=== PATIENT | female | born 1930 | race Caucasian/White ===

== ENCOUNTER 2018-01-07 02:12 | Inpatient (IN) | payer MEDICARE, OTHER ==
[~2018-01-07] VITALS: Ht 165.1 cm; Wt 68.1 kg
[~2018-01-07 02:12] MED LIST: ASPI-1009 PO; CLOP75TA35 PO; DEXL30CA3 PO; GLYB2.5T59 PO; ZOC40T PO
[2018-01-07] MEDS ORDERED: ipratropium 0.5 MG/2.5ML nebule IH ONE (02:15)
[2018-01-07] MEDS ORDERED: magnesium 4gm in 100ml NS 100 ML IV ONE (02:15)
[2018-01-07] MEDS ORDERED: albuterol 2.5 MG/3 ML nebule CONTNEB PRN (02:15)
[2018-01-07] MEDS ORDERED: methylPREDNISolone sod succ 125mg/2ml vial IV ONE (02:15)
[2018-01-07 02:40] LABS: BASOPHILS % (AUTO) 0.3 % (0-1); EOSINOPHILS # (AUTO) 0.5 X10'3 (0-0.9); EOSINOPHILS % (AUTO) 4.6 % (0-6); HEMATOCRIT 37.2 % (35.0-45.0); HEMOGLOBIN 12.4 g/dl (12.0-16.0); LYMPHOCYTES # (AUTO) 5.7 X10'3 (1.1-4.8); LYMPHOCYTES % (AUTO) 47.9 % (21-51); MEAN CORPUSCULAR HEMOGLOBIN 31.3 PG (27.0-31.0); MEAN CORPUSCULAR HGB CONC 33.4 % (33.0-36.5); MEAN CORPUSCULAR VOLUME 93.7 FL (78-98); MONOCYTES % (AUTO) 8.3 % (2-12); NEUTROPHILS # (AUTO) 4.6 X10'3 (1.8-7.7); NEUTROPHILS % (AUTO) 38.9 % (42-75); RED BLOOD COUNT 3.97 X10'6 (4.20-5.60); RED CELL DISTRIBUTION WIDTH 16.1 % (11.5-14.5); WHITE BLOOD COUNT 11.8 X10'3 (4.5-11.0)
[2018-01-07 02:50] LABS: INR 0.9 INR; PARTIAL THROMBOPLASTIN TIME 22 SECONDS (22-32); PROTHROMBIN TIME 9.8 SECONDS (9.0-12.0)
[2018-01-07 02:55] LABS: ALANINE AMINOTRANSFERASE 21 U/L (12-78); ALBUMIN 3.6 G/DL (3.4-5.0); ALBUMIN/GLOBULIN RATIO 0.8 (1.1-1.5); ALKALINE PHOSPHATASE 82 IU/L (46-116); ANION GAP 14 (8-16); ASPARTATE AMINO TRANSFERASE 23 U/L (10-37); BILIRUBIN,TOTAL 0.3 MG/DL (0.1-1.0); BLOOD UREA NITROGEN 28 MG/DL (7-18); BUN/CREATININE RATIO 18.4 (6.6-38.0); CALCIUM 10.5 MG/DL (8.5-10.1); CHLORIDE 106 MMOL/L (99-107); CREATININE 1.52 MG/DL (0.40-0.90); GLUCOSE 241 MG/DL (70-104); POTASSIUM 3.8 MMOL/L (3.5-5.1); SODIUM 145 MMOL/L (135-145); TOTAL PROTEIN 7.9 G/DL (6.4-8.2); eGFR 33 ML/MIN
[2018-01-07 03:02] LABS: MAGNESIUM 2.2 MG/DL (1.5-2.4)
[2018-01-07 03:04] LABS: PLATELET COUNT 194 X10'3 (140-440)
[2018-01-07] MEDS ORDERED: furosemide 10 MG/1 ML 10ml inj IV ONE (03:15)
[2018-01-07] MEDS: normal saline 1000ml 1,000 ML IV SCH (03:28)
[2018-01-07] MEDS ORDERED: glucagon, human recombinant 1mg kit SUBCUT PRN (03:30)
[2018-01-07] MEDS ORDERED: morphine 4 MG/ML inj SYRINge IV PRN ×2 (03:30)
[2018-01-07] MEDS ORDERED: bisacodyl 10mg suppository rectal RC PRN (03:30)
[2018-01-07] MEDS ORDERED: acetaminophen 650mg rectal suppository RC PRN (03:30)
[2018-01-07] MEDS ORDERED: dextrose ORAL solution 15 GM/59 ML bottle PO PRN ×2 (03:30)
[2018-01-07] MEDS ORDERED: mag hydrox/Alum hydrox/simeth 30ml oral suspension PO PRN (03:30)
[2018-01-07] MEDS ORDERED: dextrose 50%-water 50ml dispensing syringe IV PRN ×2 (03:30)
[2018-01-07] MEDS ORDERED: acetaminophen 325mg tablet PO PRN (03:30)
[2018-01-07] MEDS ORDERED: HYDROmorphone 1 mg/ml syringe IV PRN ×2 (03:30)
[2018-01-07] MEDS ORDERED: HYDROcodone/acetaminophen 10/325mg tab PO PRN (03:30)
[2018-01-07] MEDS ORDERED: magnesium hydroxide 30ml (MOM) UD suspension PO PRN (03:30)
[2018-01-07] MEDS ORDERED: MESSAGE TO PHARMACY PO ONE (03:30)
[2018-01-07] MEDS ORDERED: ondansetron/PF 4mg/2ml inj IV PRN (03:30)
[2018-01-07] MEDS ORDERED: metoclopramide 5 mg/ml inj IV PRN (03:30)
[2018-01-07 03:52] LABS: HEMOGLOBIN A1C 6.7 % (4.5-6.2)
[2018-01-07 04:03] LABS: D-DIMER 6.53 MG/L FEU (0-0.50)
[2018-01-07] MEDS ORDERED: ipratropium/albuterol 3ml nebule NEB PRN ×2 (04:25→08:55)
[2018-01-07 04:30] VITALS: BP 146/65
[2018-01-07] MEDS: azithromycin/NS 500mg/250ml 250 ML IV SCH (04:40)
[2018-01-07 04:51] LABS: ABG BASE EXCESS -0.6 mmol/L (-2.0-3.0); ABG OXYGEN SATURATION 93.3 % (95-98); ABG PCO2 (T) 38.5 mmHg (32.0-45.0); ABG PO2 (T) 73.2 mmHg (83-108); FCOHb 0.3 % (0.5-1.5); FLOW 3 L/min; FMetHb 0.2 % (0.3-1.12); FO2Hb 92.8 % (94-100); PATIENT TEMPERATURE 36.6; RESPIRATORY RATE (OBSERVED) 18 b/min; TOTAL HEMOGLOBIN 13.1 G/dl (12.0-16.0)
[2018-01-07 06:00] VITALS: BP 132/73
[2018-01-07] MEDS: docusate sod 100mg capsule PO SCH ×2 (07:26→21:09)
[2018-01-07] MEDS: clopidogrel 75mg tablet PO SCH (07:27)
[2018-01-07] MEDS ORDERED: enoxaparin 60mg/0.6ml syringe SUBCUT SCH (08:00)
[2018-01-07] MEDS ORDERED: methylPREDNISolone sod succ 125mg/2ml vial IV SCH (08:00)
[2018-01-07] MEDS ORDERED: heparin 10,000 units/1 ML INJ IV ONE (09:45)
[2018-01-07] MEDS ORDERED: heparin 10,000 units/1 ML INJ IV PRN (09:45)
[2018-01-07 10:17] LABS: BASOPHILS % (AUTO) 0.1 % (0-1); EOSINOPHILS % (AUTO) 0 % (0-6); HEMATOCRIT 36.3 % (35.0-45.0); HEMOGLOBIN 12.2 g/dl (12.0-16.0); LYMPHOCYTES # (AUTO) 1.1 X10'3 (1.1-4.8); LYMPHOCYTES % (AUTO) 9.5 % (21-51); MEAN CORPUSCULAR HGB CONC 33.6 % (33.0-36.5); MEAN CORPUSCULAR VOLUME 92.4 FL (78-98); MEAN PLATELET VOLUME 11.4 FL (7.4-10.4); MONOCYTES # (AUTO) 0.1 X10'3 (0-0.9); MONOCYTES % (AUTO) 0.5 % (2-12); NEUTROPHILS # (AUTO) 10.8 X10'3 (1.8-7.7); NEUTROPHILS % (AUTO) 89.9 % (42-75); PLATELET COUNT 164 X10'3 (140-440); RED BLOOD COUNT 3.93 X10'6 (4.20-5.60); RED CELL DISTRIBUTION WIDTH 16.2 % (11.5-14.5)
[2018-01-07] MEDS: CefTRIAXone/D5W-Rocephin 1gm 50 ML IV SCH (10:18)
[2018-01-07] MEDS: aspirin 81mg tab.chew PO SCH (10:18)
[2018-01-07] MEDS: furosemide 20 MG/2 ML vial IV SCH ×2 (10:18→21:09)
[2018-01-07 10:48] LABS: LARGE PLATELETS FEW; PLATELET ESTIMATE NORMAL
[2018-01-07 11:00] VITALS: BP 132/73
[2018-01-07] MEDS: HYDROcodone/acetaminophen 5mg/325mg tablet PO PRN (12:33)
[2018-01-07] MEDS: insulin Lispro (HumaLOG) vial - multi-dose SQ SCH ×2 (14:32→18:48)
[2018-01-07] MEDS: carVEDilol 3.125mg tablet PO SCH ×2 (14:35→21:09)
[2018-01-07 15:00] VITALS: BP 126/64
[2018-01-07 15:02] LABS: CHOL/HDL RATIO 2.5 (0.00-4.99); CHOLESTEROL 171 MG/DL (0-200); HDL CHOLESTEROL 69 MG/DL (35-60); LDL CHOLESTEROL 91 MG/DL (50-100); TRIGLYCERIDES 47 MG/DL (20-135)
[2018-01-07] MEDS: methylPREDNISolone sod succ 125mg/2ml vial IV SCH ×2 (16:26→23:51)
[2018-01-07 18:00] VITALS: BP 127/97
[2018-01-07] MEDS ORDERED: temazepam 15mg capsule PO PRN (21:00)
[2018-01-07] MEDS: atorvastatin 20mg tablet PO SCH (21:09)
[2018-01-07] MEDS: lactobacillus rhamnosus 10,000 MMU CELLS/CAPSULE PO SCH (21:09)
[2018-01-07] MEDS ORDERED: ROSU40TA PO (21:11)
[2018-01-07] MEDS: insulin glargine (Lantus) pen - multi-dose SQ SCH (21:22)
[2018-01-07 22:00] VITALS: BP 115/64
[2018-01-08] MEDS: HYDROcodone/acetaminophen 5mg/325mg tablet PO PRN (01:30)
[2018-01-08 01:40] LABS: ALANINE AMINOTRANSFERASE 20 U/L (12-78); ALBUMIN 3.3 G/DL (3.4-5.0); ALBUMIN/GLOBULIN RATIO 0.9 (1.1-1.5); ALKALINE PHOSPHATASE 52 IU/L (46-116); ANION GAP 10 (8-16); ASPARTATE AMINO TRANSFERASE 21 U/L (10-37); BILIRUBIN,TOTAL 0.3 MG/DL (0.1-1.0); BLOOD UREA NITROGEN 38 MG/DL (7-18); BUN/CREATININE RATIO 31.1 (6.6-38.0); CALCIUM 9.2 MG/DL (8.5-10.1); CHLORIDE 102 MMOL/L (99-107); CREATININE 1.22 MG/DL (0.40-0.90); GLUCOSE 177 MG/DL (70-104); POTASSIUM 3.8 MMOL/L (3.5-5.1); SODIUM 139 MMOL/L (135-145); TOTAL PROTEIN 7.1 G/DL (6.4-8.2); eGFR 42 ML/MIN
[2018-01-08 01:48] LABS: BASOPHILS % (AUTO) 0 % (0-1); EOSINOPHILS % (AUTO) 0 % (0-6); HEMATOCRIT 34.1 % (35.0-45.0); HEMOGLOBIN 11.2 g/dl (12.0-16.0); LYMPHOCYTES # (AUTO) 1.7 X10'3 (1.1-4.8); LYMPHOCYTES % (AUTO) 9.5 % (21-51); MEAN CORPUSCULAR HEMOGLOBIN 30.6 PG (27.0-31.0); MEAN CORPUSCULAR HGB CONC 32.9 % (33.0-36.5); MONOCYTES # (AUTO) 0.3 X10'3 (0-0.9); MONOCYTES % (AUTO) 1.5 % (2-12); NEUTROPHILS # (AUTO) 15.6 X10'3 (1.8-7.7); PLATELET COUNT 166 X10'3 (140-440); RED BLOOD COUNT 3.67 X10'6 (4.20-5.60); RED CELL DISTRIBUTION WIDTH 16.1 % (11.5-14.5); WHITE BLOOD COUNT 17.6 X10'3 (4.5-11.0)
[2018-01-08 02:00] VITALS: BP 96/56
[2018-01-08 02:10] LABS: LARGE PLATELETS FEW; PLATELET ESTIMATE NORMAL
[2018-01-08 06:00] VITALS: BP 104/67
[2018-01-08] MEDS: docusate sod 100mg capsule PO SCH ×2 (07:52→19:39)
[2018-01-08] MEDS: clopidogrel 75mg tablet PO SCH (07:52)
[2018-01-08] MEDS: aspirin 81mg tab.chew PO SCH (07:52)
[2018-01-08] MEDS: methylPREDNISolone sod succ 125mg/2ml vial IV SCH (07:57)
[2018-01-08] MEDS: CefTRIAXone/D5W-Rocephin 1gm 50 ML IV SCH (07:57)
[2018-01-08] MEDS: azithromycin/NS 500mg/250ml 250 ML IV SCH (07:59)
[2018-01-08] MEDS: aspirin 81mg tablet.DR PO SCH (08:00)
[2018-01-08] MEDS: lactobacillus rhamnosus 10,000 MMU CELLS/CAPSULE PO SCH ×2 (08:13→19:39)
[2018-01-08] MEDS: furosemide 20 MG/2 ML vial IV SCH (08:13)
[2018-01-08] MEDS: carVEDilol 3.125mg tablet PO SCH ×2 (08:24→19:40)
[2018-01-08] MEDS: insulin Lispro (HumaLOG) vial - multi-dose SQ SCH ×3 (08:47→18:45)
[2018-01-08 11:00] VITALS: BP 115/77
[2018-01-08 15:00] VITALS: BP 114/59
[2018-01-08 18:00] VITALS: BP 130/70
[2018-01-08] MEDS ORDERED: normal saline 1000ml 1,000 ML IV SCH (20:00)
[2018-01-08] MEDS ORDERED: atorvastatin 10mg tablet PO SCH (21:00)
[2018-01-08] MEDS: atorvastatin 20mg tablet PO SCH (21:35)
[2018-01-08] MEDS: insulin glargine (Lantus) pen - multi-dose SQ SCH (21:42)
[2018-01-08 22:00] VITALS: BP 104/59
[2018-01-09 02:00] VITALS: BP 101/53
[2018-01-09] MEDS: normal saline 1000ml 1,000 ML IV SCH (03:28)
[2018-01-09 06:00] VITALS: BP 117/73
[2018-01-09 06:35] LABS: BASOPHILS % (AUTO) 0 % (0-1); EOSINOPHILS % (AUTO) 0 % (0-6); HEMOGLOBIN 10.6 g/dl (12.0-16.0); LYMPHOCYTES # (AUTO) 1.2 X10'3 (1.1-4.8); LYMPHOCYTES % (AUTO) 7.7 % (21-51); MEAN CORPUSCULAR HEMOGLOBIN 30.7 PG (27.0-31.0); MEAN CORPUSCULAR HGB CONC 33.1 % (33.0-36.5); MEAN CORPUSCULAR VOLUME 92.8 FL (78-98); MEAN PLATELET VOLUME 10.6 FL (7.4-10.4); MONOCYTES % (AUTO) 6.5 % (2-12); NEUTROPHILS # (AUTO) 13.9 X10'3 (1.8-7.7); NEUTROPHILS % (AUTO) 85.8 % (42-75); PLATELET COUNT 158 X10'3 (140-440); RED BLOOD COUNT 3.45 X10'6 (4.20-5.60); RED CELL DISTRIBUTION WIDTH 16.3 % (11.5-14.5); WHITE BLOOD COUNT 16.2 X10'3 (4.5-11.0)
[2018-01-09 07:04] LABS: ALANINE AMINOTRANSFERASE 16 U/L (12-78); ALBUMIN/GLOBULIN RATIO 0.9 (1.1-1.5); ALKALINE PHOSPHATASE 44 IU/L (46-116); ANION GAP 7 (8-16); ASPARTATE AMINO TRANSFERASE 20 U/L (10-37); BILIRUBIN,TOTAL 0.3 MG/DL (0.1-1.0); BLOOD UREA NITROGEN 48 MG/DL (7-18); BUN/CREATININE RATIO 38.7 (6.6-38.0); CALCIUM 8.5 MG/DL (8.5-10.1); CHLORIDE 107 MMOL/L (99-107); CREATININE 1.24 MG/DL (0.40-0.90); GLUCOSE 95 MG/DL (70-104); POTASSIUM 3.7 MMOL/L (3.5-5.1); SODIUM 143 MMOL/L (135-145); TOTAL CARBON DIOXIDE 28.9 MMOL/L (24-32); TOTAL PROTEIN 6.5 G/DL (6.4-8.2); eGFR 41 ML/MIN
[2018-01-09 07:15] LABS: LARGE PLATELETS FEW; PLATELET ESTIMATE NORMAL
[2018-01-09] MEDS: aspirin 81mg tab.chew PO SCH (07:57)
[2018-01-09] MEDS: aspirin 81mg tablet.DR PO SCH (07:57)
[2018-01-09] MEDS: lactobacillus rhamnosus 10,000 MMU CELLS/CAPSULE PO SCH (07:57)
[2018-01-09] MEDS: docusate sod 100mg capsule PO SCH (07:57)
[2018-01-09] MEDS: carVEDilol 3.125mg tablet PO SCH (07:57)
[2018-01-09] MEDS: CefTRIAXone/D5W-Rocephin 1gm 50 ML IV SCH (07:58)
[2018-01-09] MEDS: azithromycin/NS 500mg/250ml 250 ML IV SCH (07:58)
[2018-01-09] MEDS ORDERED: methylPREDNISolone sod succ 125mg/2ml vial IV SCH (08:00)
[2018-01-09] MEDS ORDERED: furosemide 20 MG/2 ML vial IV SCH (08:00)
[2018-01-09 11:00] VITALS: BP 99/54
[2018-01-09] MEDS: insulin Lispro (HumaLOG) vial - multi-dose SQ SCH (12:38)
[2018-01-09] MEDS ORDERED: AZIT500T5 PO (14:26)
[2018-01-09] MEDS ORDERED: COR3.125T PO (14:26)
[2018-01-09] MEDS ORDERED: PRED10TA23 PO (14:26)
[2018-01-09 15:00] VITALS: BP 114/56
[2018-01-09] MEDS ORDERED: heparin, porcine 5000 units/ml vial SQ SCH (20:00)
== END 2018-01-09 18:18 | disposition home or self-care (01) | DRG 871 ==
LOC: ER 02:12 → PCU 3S 03:28 → CMPBEDREQ 04:03
PROVIDERS: ADMIT Family Medicine; ATTEND Internal Medicine
PROC: 5A09357 Assistance with Respiratory Ventilation, Less than 24 Consecutive Hours, Continuous Positive Airway Pressure (ICD-10-PCS; principal; 2018-01-07)
DX: A41.9 Sepsis, unspecified organism (principal); I50.31 Acute diastolic (congestive) heart failure; J18.9 Pneumonia, unspecified organism; J96.91 Respiratory failure, unspecified with hypoxia; I13.0 Hypertensive heart and chronic kidney disease with heart failure and stage 1 through stage 4 chronic kidney disease, or unspecified chronic kidney disease; J44.0 Chronic obstructive pulmonary disease with (acute) lower respiratory infection; J44.1 Chronic obstructive pulmonary disease with (acute) exacerbation; N17.9 Acute kidney failure, unspecified; I35.0 Nonrheumatic aortic (valve) stenosis; E11.22 Type 2 diabetes mellitus with diabetic chronic kidney disease; E11.51 Type 2 diabetes mellitus with diabetic peripheral angiopathy without gangrene; E78.5 Hyperlipidemia, unspecified; I25.10 Atherosclerotic heart disease of native coronary artery without angina pectoris; I65.29 Occlusion and stenosis of unspecified carotid artery; I71.4 Abdominal aortic aneurysm, without rupture; N18.9 Chronic kidney disease, unspecified; Z90.710 Acquired absence of both cervix and uterus; Z79.899 Other long term (current) drug therapy; Z79.82 Long term (current) use of aspirin; Z85.42 Personal history of malignant neoplasm of other parts of uterus; Z87.891 Personal history of nicotine dependence
CPT/HCPCS: 36415; 36600; 71045; 80053; 80061; 82803; 82948; 83036; 83605; 83735; 83880; 84484; 85018; 85025; 85379; 85610; 85730; 87040; 87070; 93005; 93306; 94640; 94644; 94660; 94760; 96365; 96375; 97116; 97161; 97530; 99291; J0456; J0696; J1644; J1650; J1815; J1940; J2930; J3475; J7030

== ENCOUNTER 2018-02-25 13:53 | Day surgery (SDC) | payer OTHER ==
[~2018-02-25] VITALS: Ht 165.1 cm; Wt 67.4 kg
[2018-02-25] VITALS (9 sets, daily range): BP systolic 142–160; BP diastolic 70–91
[~2018-02-25 13:53] MED LIST changes: +AZIT500T5 PO; -CLOP75TA35 PO; +COR3.125T PO; -DEXL30CA3 PO; -GLYB2.5T59 PO; +ROSU40TA PO; -ZOC40T PO
[2018-02-25] MEDS ORDERED: diphenhydrAMINE 25mg capsule PO PRN (14:50)
[2018-02-25] MEDS ORDERED: LORazepam 0.5 MG tablet PO PRN (14:50)
[2018-02-25] MEDS ORDERED: normal saline 1000ml 1,000 ML IV SCH (14:50)
[2018-02-25] MEDS ORDERED: HYDR-3193 PO (15:01)
[2018-02-25] MEDS ORDERED: iohexol 350MG/ML 100ml bottle IV ONE (16:26)
[2018-02-25] MEDS ORDERED: lidocaine 1%/epinephrine 1:100,000 injection 50ml vial ONE (16:26)
[2018-02-25] MEDS ORDERED: fentaNYL/PF 50MCG/1 ML 2ML syringe ONE (16:40)
[2018-02-25] MEDS ORDERED: proCHLORperazine 10 MG/2 ml inj IV PRN (18:20)
[2018-02-25] MEDS ORDERED: HYDROcodone/acetaminophen 5mg/325mg tablet PO PRN (18:20)
[2018-02-25] MEDS ORDERED: acetaminophen 325mg tablet PO PRN (18:20)
[2018-02-25] MEDS ORDERED: ondansetron/PF 4mg/2ml inj IV PRN (18:20)
[2018-02-25] MEDS ORDERED: HYDROcodone/acetaminophen 10/325mg tab PO PRN (18:20)
[2018-02-25] MEDS ORDERED: OXAZEpam 15mg capsule PO PRN (18:20)
== END 2018-02-25 20:10 | disposition home or self-care (01) ==
LOC: SSTAY O 13:53
PROVIDERS: ATTEND Internal Medicine Interventional Cardiology
DX: I25.10 Atherosclerotic heart disease of native coronary artery without angina pectoris (principal); I71.4 Abdominal aortic aneurysm, without rupture; I13.0 Hypertensive heart and chronic kidney disease with heart failure and stage 1 through stage 4 chronic kidney disease, or unspecified chronic kidney disease; E11.22 Type 2 diabetes mellitus with diabetic chronic kidney disease; N18.9 Chronic kidney disease, unspecified; I50.31 Acute diastolic (congestive) heart failure; E78.5 Hyperlipidemia, unspecified; I65.23 Occlusion and stenosis of bilateral carotid arteries; G89.29 Other chronic pain; J44.9 Chronic obstructive pulmonary disease, unspecified; Z82.49 Family history of ischemic heart disease and other diseases of the circulatory system; E11.51 Type 2 diabetes mellitus with diabetic peripheral angiopathy without gangrene; Z95.5 Presence of coronary angioplasty implant and graft; Z86.79 Personal history of other diseases of the circulatory system; Z79.82 Long term (current) use of aspirin; Z79.2 Long term (current) use of antibiotics; Z79.891 Long term (current) use of opiate analgesic; Z86.73 Personal history of transient ischemic attack (TIA), and cerebral infarction without residual deficits; Z87.891 Personal history of nicotine dependence; Z87.01 Personal history of pneumonia (recurrent); Z72.89 Other problems related to lifestyle; Z85.42 Personal history of malignant neoplasm of other parts of uterus; Z90.710 Acquired absence of both cervix and uterus; Z90.49 Acquired absence of other specified parts of digestive tract; Z87.440 Personal history of urinary (tract) infections; Z98.890 Other specified postprocedural states; Z79.899 Other long term (current) drug therapy
CPT/HCPCS: 93454; 99152; A6257; C1769; J1644; J3010; J3490; J7030; Q0163; Q9967; 93458; A4620

== ENCOUNTER 2018-04-15 06:31 | Inpatient (IN) | payer OTHER ==
[~2018-04-15] VITALS: Ht 165.1 cm; Wt 68.8 kg
[~2018-04-15 06:31] MED LIST changes: -AZIT500T5 PO; -COR3.125T PO; +HYDR-3193 PO
[2018-04-15] MEDS ORDERED: methylPREDNISolone sod succ 125mg/2ml vial IV ONE (06:40)
[2018-04-15] MEDS ORDERED: ipratropium/albuterol 3ml nebule NEB ONE (06:40)
[2018-04-15 06:56] LABS: BASOPHILS % (AUTO) 0.3 % (0-1); EOSINOPHILS # (AUTO) 0.3 X10'3 (0-0.9); EOSINOPHILS % (AUTO) 2.4 % (0-6); HEMATOCRIT 32.8 % (35.0-45.0); HEMOGLOBIN 10.8 g/dl (12.0-16.0); LYMPHOCYTES # (AUTO) 2.5 X10'3 (1.1-4.8); LYMPHOCYTES % (AUTO) 22.7 % (21-51); MEAN CORPUSCULAR HEMOGLOBIN 29.8 PG (27.0-31.0); MEAN CORPUSCULAR VOLUME 90.4 FL (78-98); MEAN PLATELET VOLUME 10.3 FL (7.4-10.4); MONOCYTES # (AUTO) 0.6 X10'3 (0-0.9); MONOCYTES % (AUTO) 5.8 % (2-12); NEUTROPHILS # (AUTO) 7.5 X10'3 (1.8-7.7); NEUTROPHILS % (AUTO) 68.8 % (42-75); PLATELET COUNT 199 X10'3 (140-440); RED BLOOD COUNT 3.63 X10'6 (4.20-5.60); RED CELL DISTRIBUTION WIDTH 17.6 % (11.5-14.5); WHITE BLOOD COUNT 10.9 X10'3 (4.5-11.0)
[2018-04-15 07:08] LABS: PARTIAL THROMBOPLASTIN TIME 24 SECONDS (22-32); PROTHROMBIN TIME 10.3 SECONDS (9.0-12.0)
[2018-04-15 07:10] LABS: ALANINE AMINOTRANSFERASE 24 U/L (12-78); ALBUMIN 3.3 G/DL (3.4-5.0); ALBUMIN/GLOBULIN RATIO 0.9 (1.1-1.5); ALKALINE PHOSPHATASE 55 IU/L (46-116); ANION GAP 10 (8-16); ASPARTATE AMINO TRANSFERASE 22 U/L (10-37); BILIRUBIN,TOTAL 0.4 MG/DL (0.1-1.0); BLOOD UREA NITROGEN 21 MG/DL (7-18); BUN/CREATININE RATIO 17.9 (6.6-38.0); CALCIUM 8.8 MG/DL (8.5-10.1); CHLORIDE 106 MMOL/L (99-107); CREATININE 1.17 MG/DL (0.40-0.90); GLUCOSE 233 MG/DL (70-104); POTASSIUM 4.2 MMOL/L (3.5-5.1); SODIUM 141 MMOL/L (135-145); TOTAL PROTEIN 7.1 G/DL (6.4-8.2); eGFR 44 ML/MIN
[2018-04-15] MEDS ORDERED: furosemide 10 MG/1 ML 10ml inj IV ONE (07:15)
[2018-04-15] MEDS ORDERED: levoFLOXACIN-Levaquin 750MG/D5 150 ML IV ONE (08:40)
[2018-04-15] MEDS ORDERED: acetaminophen 325mg tablet PO PRN (08:55)
[2018-04-15] MEDS ORDERED: magnesium hydroxide 30ml (MOM) UD suspension PO PRN (08:55)
[2018-04-15] MEDS ORDERED: ondansetron/PF 4mg/2ml inj IV PRN (08:55)
[2018-04-15] MEDS ORDERED: mag hydrox/Alum hydrox/simeth 30ml oral suspension PO PRN (08:55)
[2018-04-15] MEDS: ipratropium/albuterol 3ml nebule NEB SCH ×4 (10:49→23:50)
[2018-04-15] MEDS: aspirin 81mg tablet.DR PO SCH (11:00)
[2018-04-15] MEDS ORDERED: CARV3.122 PO (11:14)
[2018-04-15] MEDS: carVEDilol 3.125mg tablet PO SCH ×2 (12:08→19:39)
[2018-04-15] MEDS ORDERED: LIDOcaine 0.5% (5mg/ml) 50ml vial ONE (12:38)
[2018-04-15] MEDS: methylPREDNISolone sod succ 125mg/2ml vial IV SCH ×2 (14:00→19:40)
[2018-04-15 15:00] VITALS: BP 137/76
[2018-04-15 18:00] VITALS: BP 123/58
[2018-04-15] MEDS: lactobacillus rhamnosus 10,000 MMU CELLS/CAPSULE PO SCH (19:39)
[2018-04-15] MEDS: furosemide 20 MG/2 ML vial IV SCH (19:41)
[2018-04-15 22:00] VITALS: BP 131/68
[2018-04-16 02:00] VITALS: BP 138/82
[2018-04-16] MEDS: methylPREDNISolone sod succ 125mg/2ml vial IV SCH ×4 (02:05→20:16)
[2018-04-16] MEDS: ipratropium/albuterol 3ml nebule NEB SCH ×6 (03:56→23:37)
[2018-04-16 06:25] LABS: BASOPHILS % (AUTO) 0.1 % (0-1); EOSINOPHILS % (AUTO) 0 % (0-6); HEMATOCRIT 32.4 % (35.0-45.0); HEMOGLOBIN 10.8 g/dl (12.0-16.0); LYMPHOCYTES # (AUTO) 1.4 X10'3 (1.1-4.8); LYMPHOCYTES % (AUTO) 9.7 % (21-51); MEAN CORPUSCULAR HEMOGLOBIN 30.2 PG (27.0-31.0); MEAN CORPUSCULAR HGB CONC 33.3 % (33.0-36.5); MEAN CORPUSCULAR VOLUME 90.6 FL (78-98); MEAN PLATELET VOLUME 11.5 FL (7.4-10.4); MONOCYTES # (AUTO) 0.5 X10'3 (0-0.9); MONOCYTES % (AUTO) 3.4 % (2-12); NEUTROPHILS # (AUTO) 12.9 X10'3 (1.8-7.7); NEUTROPHILS % (AUTO) 86.8 % (42-75); PLATELET COUNT 200 X10'3 (140-440); RED BLOOD COUNT 3.57 X10'6 (4.20-5.60); RED CELL DISTRIBUTION WIDTH 17.2 % (11.5-14.5); WHITE BLOOD COUNT 14.9 X10'3 (4.5-11.0)
[2018-04-16 07:00] VITALS: BP 136/81
[2018-04-16 07:01] LABS: ALBUMIN 3.4 G/DL (3.4-5.0); ANION GAP 11 (8-16); BLOOD UREA NITROGEN 27 MG/DL (7-18); BUN/CREATININE RATIO 22.1 (6.6-38.0); CALCIUM 9.1 MG/DL (8.5-10.1); CHLORIDE 105 MMOL/L (99-107); CREATININE 1.22 MG/DL (0.40-0.90); GLUCOSE 185 MG/DL (70-104); POTASSIUM 3.8 MMOL/L (3.5-5.1); SODIUM 141 MMOL/L (135-145); TOTAL CARBON DIOXIDE 25.2 MMOL/L (24-32); eGFR 42 ML/MIN
[2018-04-16] MEDS: lactobacillus rhamnosus 10,000 MMU CELLS/CAPSULE PO SCH ×2 (08:11→20:16)
[2018-04-16] MEDS: levoFLOXACIN-Levaquin 500mg/D5 100 ML IV SCH (08:11)
[2018-04-16] MEDS: carVEDilol 3.125mg tablet PO SCH (08:11)
[2018-04-16] MEDS: aspirin 81mg tablet.DR PO SCH (08:11)
[2018-04-16] MEDS: furosemide 20 MG/2 ML vial IV SCH ×2 (08:12→20:15)
[2018-04-16 09:07] LABS: ANISOCYTOSIS 1+; ELLIPTOCYTES FEW; HYPOCHROMASIA 1+; LARGE PLATELETS FEW; PLATELET ESTIMATE NORMAL; SCHISTOCYTES FEW
[2018-04-16] MEDS ORDERED: carvedilol 6.25mg tablet PO SCH (10:30)
[2018-04-16] MEDS ORDERED: LORazepam 0.5 MG tablet PO PRN (10:30)
[2018-04-16] MEDS ORDERED: HYDROcodone/acetaminophen 10/325mg tab PO PRN (10:30)
[2018-04-16 11:00] VITALS: BP 112/74
[2018-04-16 15:00] VITALS: BP 123/66
[2018-04-16 19:00] VITALS: BP 132/80
[2018-04-16] MEDS: carvedilol 6.25mg tablet PO SCH (20:16)
[2018-04-16 23:00] VITALS: BP 126/74
[2018-04-17 03:00] VITALS: BP 143/91
[2018-04-17] MEDS: ipratropium/albuterol 3ml nebule NEB SCH ×6 (03:14→23:17)
[2018-04-17 05:59] LABS: BASOPHILS % (AUTO) 0 % (0-1); EOSINOPHILS # (AUTO) 0.2 X10'3 (0-0.9); EOSINOPHILS % (AUTO) 0.8 % (0-6); HEMATOCRIT 33.1 % (35.0-45.0); HEMOGLOBIN 10.9 g/dl (12.0-16.0); LYMPHOCYTES # (AUTO) 1.1 X10'3 (1.1-4.8); LYMPHOCYTES % (AUTO) 5.3 % (21-51); MEAN CORPUSCULAR HEMOGLOBIN 29.8 PG (27.0-31.0); MEAN CORPUSCULAR HGB CONC 32.9 % (33.0-36.5); MEAN CORPUSCULAR VOLUME 90.7 FL (78-98); MEAN PLATELET VOLUME 11.1 FL (7.4-10.4); MONOCYTES # (AUTO) 0.6 X10'3 (0-0.9); MONOCYTES % (AUTO) 2.7 % (2-12); NEUTROPHILS # (AUTO) 18.9 X10'3 (1.8-7.7); NEUTROPHILS % (AUTO) 91.2 % (42-75); PLATELET COUNT 207 X10'3 (140-440); RED BLOOD COUNT 3.66 X10'6 (4.20-5.60); RED CELL DISTRIBUTION WIDTH 17.8 % (11.5-14.5); WHITE BLOOD COUNT 20.8 X10'3 (4.5-11.0)
[2018-04-17 06:00] VITALS: BP 130/77
[2018-04-17 06:36] LABS: ALBUMIN 3.6 G/DL (3.4-5.0); ANION GAP 11 (8-16); BLOOD UREA NITROGEN 44 MG/DL (7-18); BUN/CREATININE RATIO 31.2 (6.6-38.0); CHLORIDE 102 MMOL/L (99-107); CREATININE 1.41 MG/DL (0.40-0.90); GLUCOSE 151 MG/DL (70-104); SODIUM 140 MMOL/L (135-145); TOTAL CARBON DIOXIDE 27.3 MMOL/L (24-32); eGFR 35 ML/MIN
[2018-04-17] MEDS: lactobacillus rhamnosus 10,000 MMU CELLS/CAPSULE PO SCH ×2 (07:31→20:36)
[2018-04-17] MEDS: carvedilol 6.25mg tablet PO SCH ×2 (07:32→20:37)
[2018-04-17] MEDS: methylPREDNISolone sod succ 125mg/2ml vial IV SCH (07:33)
[2018-04-17] MEDS: levoFLOXACIN-Levaquin 500mg/D5 100 ML IV SCH (07:33)
[2018-04-17] MEDS: furosemide 20 MG/2 ML vial IV SCH ×2 (07:33→20:37)
[2018-04-17] MEDS: aspirin 81mg tablet.DR PO SCH (07:35)
[2018-04-17 11:00] VITALS: BP 141/76
[2018-04-17 15:00] VITALS: BP 132/72
[2018-04-17 19:00] VITALS: BP 130/52
[2018-04-17 23:00] VITALS: BP 108/61
[2018-04-18] MEDS: ipratropium/albuterol 3ml nebule NEB SCH ×3 (02:33→11:49)
[2018-04-18 03:00] VITALS: BP 143/91
[2018-04-18 03:43] LABS: BASOPHILS % (AUTO) 0.1 % (0-1); EOSINOPHILS # (AUTO) 0.2 X10'3 (0-0.9); EOSINOPHILS % (AUTO) 1.1 % (0-6); HEMATOCRIT 32.4 % (35.0-45.0); HEMOGLOBIN 10.8 g/dl (12.0-16.0); LYMPHOCYTES # (AUTO) 1.2 X10'3 (1.1-4.8); LYMPHOCYTES % (AUTO) 7.2 % (21-51); MEAN CORPUSCULAR HEMOGLOBIN 30.3 PG (27.0-31.0); MEAN CORPUSCULAR HGB CONC 33.4 % (33.0-36.5); MEAN CORPUSCULAR VOLUME 90.8 FL (78-98); MEAN PLATELET VOLUME 10.9 FL (7.4-10.4); NEUTROPHILS # (AUTO) 13.8 X10'3 (1.8-7.7); NEUTROPHILS % (AUTO) 85.6 % (42-75); PLATELET COUNT 213 X10'3 (140-440); RED BLOOD COUNT 3.57 X10'6 (4.20-5.60); RED CELL DISTRIBUTION WIDTH 17.9 % (11.5-14.5); WHITE BLOOD COUNT 16.1 X10'3 (4.5-11.0)
[2018-04-18 04:00] LABS: ALBUMIN 3.4 G/DL (3.4-5.0); ANION GAP 7 (8-16); BLOOD UREA NITROGEN 49 MG/DL (7-18); BUN/CREATININE RATIO 34.3 (6.6-38.0); CALCIUM 8.7 MG/DL (8.5-10.1); CHLORIDE 103 MMOL/L (99-107); CREATININE 1.43 MG/DL (0.40-0.90); GLUCOSE 134 MG/DL (70-104); POTASSIUM 4.2 MMOL/L (3.5-5.1); SODIUM 139 MMOL/L (135-145); TOTAL CARBON DIOXIDE 28.6 MMOL/L (24-32); eGFR 35 ML/MIN
[2018-04-18 06:00] VITALS: BP 121/73
[2018-04-18] MEDS: lactobacillus rhamnosus 10,000 MMU CELLS/CAPSULE PO SCH (07:25)
[2018-04-18] MEDS: furosemide 20 MG/2 ML vial IV SCH (07:25)
[2018-04-18] MEDS: aspirin 81mg tablet.DR PO SCH (07:25)
[2018-04-18] MEDS: carvedilol 6.25mg tablet PO SCH (07:25)
[2018-04-18] MEDS ORDERED: levoFLOXACIN-Levaquin 250mg/D5 50 ML IV SCH (08:00)
[2018-04-18 11:00] VITALS: BP 126/76
[2018-04-18] MEDS ORDERED: POTA10TA36 PO (11:51)
[2018-04-18] MEDS ORDERED: FURO-150 PO (11:51)
[2018-04-18] MEDS ORDERED: AMOX-422 PO (11:56)
[2018-04-18] MEDS ORDERED: HYDR-4383 PO (14:04)
== END 2018-04-18 14:15 | disposition home or self-care (01) | DRG 871 ==
LOC: ER 06:31 → ED HOLD 08:52 → PCU 3S 11:12
PROVIDERS: ADMIT Family Medicine; ATTEND Family Medicine
DX: A41.9 Sepsis, unspecified organism (principal); J18.9 Pneumonia, unspecified organism; I50.33 Acute on chronic diastolic (congestive) heart failure; I13.0 Hypertensive heart and chronic kidney disease with heart failure and stage 1 through stage 4 chronic kidney disease, or unspecified chronic kidney disease; J44.0 Chronic obstructive pulmonary disease with (acute) lower respiratory infection; E11.22 Type 2 diabetes mellitus with diabetic chronic kidney disease; E78.5 Hyperlipidemia, unspecified; I25.10 Atherosclerotic heart disease of native coronary artery without angina pectoris; I35.0 Nonrheumatic aortic (valve) stenosis; E11.51 Type 2 diabetes mellitus with diabetic peripheral angiopathy without gangrene; N18.9 Chronic kidney disease, unspecified; T38.0X5A Adverse effect of glucocorticoids and synthetic analogues, initial encounter; Z90.710 Acquired absence of both cervix and uterus; Z99.81 Dependence on supplemental oxygen; Z79.82 Long term (current) use of aspirin; Z79.899 Other long term (current) drug therapy; Z85.42 Personal history of malignant neoplasm of other parts of uterus; Z87.891 Personal history of nicotine dependence; Y92.89 Other specified places as the place of occurrence of the external cause
CPT/HCPCS: 36415; 71045; 76604; 80048; 80053; 83605; 83880; 84145; 84484; 85025; 85610; 85730; 87040; 87070; 93005; 94640; 94668; 94760; 96365; 96375; 97116; 97161; 97530; 99285; J1940; J1956; J2001; J2930; J7030

== ENCOUNTER 2018-05-25 17:03 | Inpatient (IN) | payer OTHER ==
[~2018-05-25] VITALS: Ht 165.1 cm; Wt 61.4 kg
[2018-05-25] VITALS (7 sets, daily range): BP systolic 113–148; BP diastolic 49–68
[~2018-05-25 17:03] MED LIST changes: +CARV3.122 PO; +FURO-150 PO; +HYDR-4383 PO; +POTA10TA36 PO
[2018-05-25] MEDS ORDERED: pantoprazole IV 80 MG in normal saline 100ml IV soln 100 ML IV ONE (17:55)
[2018-05-25] MEDS ORDERED: normal saline 1000ML IV soln IV ONE (17:55)
[2018-05-25] MEDS ORDERED: pantoprazole 40 MG vial IV ONE (18:00)
[2018-05-25 18:15] LABS: BASOPHILS % (AUTO) 0.2 % (0-1); EOSINOPHILS % (AUTO) 0.1 % (0-6); HEMATOCRIT 24.3 % (35.0-45.0); HEMOGLOBIN 7.9 g/dl (12.0-16.0); LYMPHOCYTES # (AUTO) 1.3 X10'3 (1.1-4.8); LYMPHOCYTES % (AUTO) 8.1 % (21-51); MEAN CORPUSCULAR HEMOGLOBIN 29.2 PG (27.0-31.0); MEAN CORPUSCULAR HGB CONC 32.3 % (33.0-36.5); MEAN CORPUSCULAR VOLUME 90.2 FL (78-98); MONOCYTES # (AUTO) 0.6 X10'3 (0-0.9); MONOCYTES % (AUTO) 3.8 % (2-12); NEUTROPHILS # (AUTO) 13.7 X10'3 (1.8-7.7); NEUTROPHILS % (AUTO) 87.8 % (42-75); PLATELET COUNT 173 X10'3 (140-440); RED BLOOD COUNT 2.69 X10'6 (4.20-5.60); RED CELL DISTRIBUTION WIDTH 18.5 % (11.5-14.5); WHITE BLOOD COUNT 15.6 X10'3 (4.5-11.0)
[2018-05-25 18:26] LABS: ALANINE AMINOTRANSFERASE 21 U/L (12-78); ALBUMIN 3.4 G/DL (3.4-5.0); ALKALINE PHOSPHATASE 55 IU/L (46-116); ANION GAP 11 (8-16); ASPARTATE AMINO TRANSFERASE 27 U/L (10-37); BILIRUBIN,TOTAL 0.3 MG/DL (0.1-1.0); BLOOD UREA NITROGEN 60 MG/DL (7-18); BUN/CREATININE RATIO 30.3 (6.6-38.0); CALCIUM 11.1 MG/DL (8.5-10.1); CHLORIDE 107 MMOL/L (99-107); CREATININE 1.98 MG/DL (0.40-0.90); GLUCOSE 174 MG/DL (70-104); POTASSIUM 4.3 MMOL/L (3.5-5.1); SODIUM 141 MMOL/L (135-145); TOTAL CARBON DIOXIDE 23.1 MMOL/L (24-32); TOTAL PROTEIN 6.8 G/DL (6.4-8.2); eGFR 24 ML/MIN
[2018-05-25 18:35] LABS: PROTHROMBIN TIME 10.5 SECONDS (9.0-12.0)
[2018-05-25] MEDS ORDERED: LISI-600 PO (19:22)
[2018-05-25 20:17] LABS: CLARITY,URINE SLIGHTLY CLOUDY (Clear); COLOR,URINE YELLOW (Yellow); GLUCOSE, URINE NEGATIVE (Neg); KETONES,URINE NEGATIVE (Neg); LEUKOCYTE ESTERASE ,URINE NEGATIVE (Neg); NITRITES, URINE NEGATIVE (Neg); OCCULT BLOOD,URINE NEGATIVE (Neg); PH,URINE 5.5 (4.8-8.0); PROTEIN,URINE TRACE mg/dl (Neg); UROBILINOGEN,URINE 0.2 E.U/dL (0.2-1.0)
[2018-05-25 20:19] LABS: UA COLLECTION TYPE NON-SPECIFIED
[2018-05-25] MEDS ORDERED: acetaminophen 650mg rectal suppository RC PRN (20:35)
[2018-05-25] MEDS: normal saline 1000ml 1,000 ML IV SCH (20:35)
[2018-05-25] MEDS ORDERED: ondansetron/PF 4mg/2ml inj IV PRN (20:35)
[2018-05-25] MEDS ORDERED: magnesium hydroxide 30ml (MOM) UD suspension PO PRN (20:35)
[2018-05-25] MEDS ORDERED: acetaminophen 325mg tablet PO PRN ×2 (20:35)
[2018-05-25] MEDS ORDERED: HYDROmorphone 1 mg/ml syringe IV PRN ×2 (20:35)
[2018-05-25] MEDS ORDERED: bisacodyl 10mg suppository rectal RC PRN (20:35)
[2018-05-25] MEDS ORDERED: HYDROcodone/acetaminophen 10/325mg tab PO PRN (20:35)
[2018-05-25] MEDS ORDERED: mag hydrox/Alum hydrox/simeth 30ml oral suspension PO PRN (20:35)
[2018-05-25] MEDS ORDERED: HYDROcodone/acetaminophen 5mg/325mg tablet PO PRN (20:35)
[2018-05-25] MEDS ORDERED: diphenhydrAMINE 25mg capsule PO PRN (20:35)
[2018-05-25] MEDS ORDERED: morphine 2 MG/ML inj. syringe IV PRN ×2 (20:35)
[2018-05-25] MEDS ORDERED: diphenhydrAMINE 50 mg/ml inj IV PRN (20:35)
[2018-05-25 20:52] LABS: BACTERIA,URINE 1+ /HPF (Neg); MUCUS STRANDS MANY /LPF (Neg); RBC,URINE 0-2 /HPF (0-2); SQUAMOUS EPITHELIAL CELL,UR MANY /LPF (FEW); WBC,URINE 0-4 /HPF (0-4)
[2018-05-25 20:58] LABS: HEMOGLOBIN A1C 6.5 % (4.5-6.2)
[2018-05-25] MEDS ORDERED: normal saline 500ml IV soln 500 ML IV ONE (21:00)
[2018-05-25] MEDS ORDERED: non-formulary drug (Rosuvastatin Calcium* (Crestor*) 1 TAB) PO SCH (21:00)
[2018-05-25] MEDS ORDERED: pantoprazole 40MG/NS 100ML BAG 100 ML IV SCH (21:00)
[2018-05-25] MEDS: atorvastatin 20mg tablet PO SCH (21:00)
[2018-05-25] MEDS ORDERED: temazepam 15mg capsule PO PRN (21:00)
[2018-05-25 21:15] LABS: MAGNESIUM 2.1 MG/DL (1.5-2.4); PHOSPHORUS 4.2 MG/DL (2.3-4.5)
[2018-05-26] VITALS (16 sets, daily range): BP systolic 88–166; BP diastolic 44–88
[2018-05-26] MEDS: normal saline 1000ml 1,000 ML IV SCH ×3 (03:37→16:16)
[2018-05-26] MEDS: CefTRIAXone/D5W-Rocephin 1gm 50 ML IV SCH ×2 (05:30→17:31)
[2018-05-26 05:37] LABS: BASOPHILS % (AUTO) 0.2 % (0-1); EOSINOPHILS # (AUTO) 0.2 X10'3 (0-0.9); EOSINOPHILS % (AUTO) 2.1 % (0-6); HEMATOCRIT 24.8 % (35.0-45.0); HEMOGLOBIN 8.2 g/dl (12.0-16.0); LYMPHOCYTES # (AUTO) 1.9 X10'3 (1.1-4.8); LYMPHOCYTES % (AUTO) 20.9 % (21-51); MEAN CORPUSCULAR HEMOGLOBIN 29.7 PG (27.0-31.0); MEAN CORPUSCULAR HGB CONC 33.1 % (33.0-36.5); MEAN CORPUSCULAR VOLUME 89.7 FL (78-98); MONOCYTES # (AUTO) 0.8 X10'3 (0-0.9); NEUTROPHILS # (AUTO) 6.1 X10'3 (1.8-7.7); NEUTROPHILS % (AUTO) 67.8 % (42-75); PLATELET COUNT 182 X10'3 (140-440); RED BLOOD COUNT 2.76 X10'6 (4.20-5.60); RED CELL DISTRIBUTION WIDTH 15.8 % (11.5-14.5); WHITE BLOOD COUNT 9.1 X10'3 (4.5-11.0)
[2018-05-26 06:10] LABS: ALANINE AMINOTRANSFERASE 22 U/L (12-78); ALBUMIN 2.8 G/DL (3.4-5.0); ALKALINE PHOSPHATASE 53 IU/L (46-116); ANION GAP 11 (8-16); ASPARTATE AMINO TRANSFERASE 28 U/L (10-37); BILIRUBIN,TOTAL 0.7 MG/DL (0.1-1.0); BLOOD UREA NITROGEN 55 MG/DL (7-18); BUN/CREATININE RATIO 37.7 (6.6-38.0); CALCIUM 9.4 MG/DL (8.5-10.1); CHLORIDE 110 MMOL/L (99-107); CREATININE 1.46 MG/DL (0.40-0.90); GLUCOSE 78 MG/DL (70-104); SODIUM 145 MMOL/L (135-145); TOTAL CARBON DIOXIDE 24.5 MMOL/L (24-32); TOTAL PROTEIN 5.6 G/DL (6.4-8.2); eGFR 34 ML/MIN
[2018-05-26] MEDS: pantoprazole 40 MG vial IV SCH ×2 (07:12→20:13)
[2018-05-26] MEDS: docusate sod 100mg capsule PO SCH ×2 (07:12→20:13)
[2018-05-26] MEDS: carVEDilol 3.125mg tablet PO SCH ×2 (07:13→20:13)
[2018-05-26] MEDS: lisinopril 5mg tablet PO SCH (07:13)
[2018-05-26 14:01] LABS: OCCULT BLOOD STOOL POSITIVE (Neg)
[2018-05-26] MEDS ORDERED: fentaNYL/PF 50MCG/1 ML 2ML syringe ONE (14:49)
[2018-05-26] MEDS ORDERED: LIDOcaine Viscous 15ml cup ONE (14:50)
[2018-05-26] MEDS ORDERED: MIDAZolam 5mg/5ml vial ONE (14:50)
[2018-05-26] MEDS: atorvastatin 20mg tablet PO SCH (20:13)
[2018-05-26] MEDS: lactobacillus rhamnosus 10,000 MMU CELLS/CAPSULE PO SCH (20:13)
[2018-05-27] VITALS: BP 105/47
[2018-05-27] MEDS: normal saline 1000ml 1,000 ML IV SCH ×2 (03:40→12:35)
[2018-05-27] MEDS: CefTRIAXone/D5W-Rocephin 1gm 50 ML IV SCH (05:04)
[2018-05-27 05:39] LABS: BASOPHILS % (AUTO) 0.4 % (0-1); EOSINOPHILS # (AUTO) 0.2 X10'3 (0-0.9); HEMATOCRIT 24.2 % (35.0-45.0); HEMOGLOBIN 8.2 g/dl (12.0-16.0); LYMPHOCYTES # (AUTO) 1.5 X10'3 (1.1-4.8); LYMPHOCYTES % (AUTO) 28.5 % (21-51); MEAN CORPUSCULAR HEMOGLOBIN 30.2 PG (27.0-31.0); MEAN CORPUSCULAR HGB CONC 33.7 % (33.0-36.5); MEAN CORPUSCULAR VOLUME 89.6 FL (78-98); MONOCYTES # (AUTO) 0.5 X10'3 (0-0.9); MONOCYTES % (AUTO) 9.3 % (2-12); NEUTROPHILS # (AUTO) 3.2 X10'3 (1.8-7.7); NEUTROPHILS % (AUTO) 58.8 % (42-75); PLATELET COUNT 163 X10'3 (140-440); RED CELL DISTRIBUTION WIDTH 16.5 % (11.5-14.5); WHITE BLOOD COUNT 5.4 X10'3 (4.5-11.0)
[2018-05-27 05:57] LABS: ALANINE AMINOTRANSFERASE 19 U/L (12-78); ALBUMIN 2.6 G/DL (3.4-5.0); ALBUMIN/GLOBULIN RATIO 0.9 (1.1-1.5); ALKALINE PHOSPHATASE 45 IU/L (46-116); ANION GAP 8 (8-16); ASPARTATE AMINO TRANSFERASE 31 U/L (10-37); BILIRUBIN,TOTAL 0.3 MG/DL (0.1-1.0); BLOOD UREA NITROGEN 31 MG/DL (7-18); BUN/CREATININE RATIO 25.4 (6.6-38.0); CALCIUM 8.4 MG/DL (8.5-10.1); CHLORIDE 114 MMOL/L (99-107); CREATININE 1.22 MG/DL (0.40-0.90); GLUCOSE 85 MG/DL (70-104); POTASSIUM 3.6 MMOL/L (3.5-5.1); SODIUM 146 MMOL/L (135-145); TOTAL CARBON DIOXIDE 24.1 MMOL/L (24-32); TOTAL PROTEIN 5.4 G/DL (6.4-8.2); eGFR 42 ML/MIN
[2018-05-27 07:26] VITALS: BP 123/50
[2018-05-27] MEDS: lisinopril 5mg tablet PO SCH (07:56)
[2018-05-27] MEDS: docusate sod 100mg capsule PO SCH (07:56)
[2018-05-27] MEDS: carVEDilol 3.125mg tablet PO SCH (07:56)
[2018-05-27] MEDS: lactobacillus rhamnosus 10,000 MMU CELLS/CAPSULE PO SCH (07:56)
[2018-05-27] MEDS: pantoprazole 40 MG vial IV SCH (07:58)
[2018-05-27 11:41] VITALS: BP 124/52
[2018-05-28 16:30] LABS: OCCULT BLOOD STOOL POSITIVE (Neg)
== END 2018-05-27 14:27 | disposition home or self-care (01) | DRG 377 ==
LOC: ER 17:03 → ED HOLD 21:40 → SUR 3N 22:00 → CMPBEDREQ 22:26
PROVIDERS: ADMIT Family Medicine; ATTEND Family Medicine
PROC: 30233N1 Transfusion of Nonautologous Red Blood Cells into Peripheral Vein, Percutaneous Approach (ICD-10-PCS; 2018-05-25)
PROC: 0DJ08ZZ Inspection of Upper Intestinal Tract, Via Natural or Artificial Opening Endoscopic (ICD-10-PCS; principal; 2018-05-26)
PROC: 30233R1 Transfusion of Nonautologous Platelets into Peripheral Vein, Percutaneous Approach (ICD-10-PCS; 2018-05-26)
DX: K92.2 Gastrointestinal hemorrhage, unspecified (principal); R65.11 Systemic inflammatory response syndrome (SIRS) of non-infectious origin with acute organ dysfunction; N17.9 Acute kidney failure, unspecified; D62 Acute posthemorrhagic anemia; K52.9 Noninfective gastroenteritis and colitis, unspecified; E11.22 Type 2 diabetes mellitus with diabetic chronic kidney disease; E86.0 Dehydration; I12.9 Hypertensive chronic kidney disease with stage 1 through stage 4 chronic kidney disease, or unspecified chronic kidney disease; N18.3 Chronic kidney disease, stage 3 (moderate); I25.10 Atherosclerotic heart disease of native coronary artery without angina pectoris; Z60.2 Problems related to living alone; E78.5 Hyperlipidemia, unspecified; J44.9 Chronic obstructive pulmonary disease, unspecified; K20.9 Esophagitis, unspecified; Z90.710 Acquired absence of both cervix and uterus; Z95.2 Presence of prosthetic heart valve; Z79.899 Other long term (current) drug therapy; Z79.82 Long term (current) use of aspirin; Z87.01 Personal history of pneumonia (recurrent)
CPT/HCPCS: 36415; 71045; 74176; 80053; 81001; 82272; 82948; 83036; 83605; 83690; 83735; 83880; 84100; 84145; 84443; 85025; 85610; 86885; 86900; 86901; 86920; 87040; 87045; 87046; 87070; 89055; 93005; 96361; 96374; 99152; 99291; A4620; C9113; G0378; J0696; J2250; J3010; J7030; P9016; P9035

== ENCOUNTER 2019-08-04 15:43 | Emergency (ER) | payer OTHER ==
[~2019-08-04] VITALS: Ht 165.1 cm; Wt 65.0 kg
[~2019-08-04 15:43] MED LIST changes: -ASPI-1009 PO; -FURO-150 PO; -HYDR-3193 PO; -HYDR-4383 PO; +LISI-600 PO; -POTA10TA36 PO
[2019-08-04 16:42] LABS: BASOPHILS % (AUTO) 0.5 % (0-1); EOSINOPHILS # (AUTO) 0.1 X10'3 (0-0.9); EOSINOPHILS % (AUTO) 0.9 % (0-6); HEMATOCRIT 39.6 % (35.0-45.0); HEMOGLOBIN 13.3 g/dl (12.0-16.0); LYMPHOCYTES # (AUTO) 1.7 X10'3 (1.1-4.8); MEAN CORPUSCULAR HEMOGLOBIN 30.9 PG (27.0-31.0); MEAN CORPUSCULAR HGB CONC 33.6 g/dL (33.0-36.5); MEAN CORPUSCULAR VOLUME 92.1 FL (78-98); MONOCYTES # (AUTO) 0.8 X10'3 (0-0.9); NEUTROPHILS # (AUTO) 6.2 X10'3 (1.8-7.7); NEUTROPHILS % (AUTO) 70.6 % (42-75); PLATELET COUNT 195 X10'3 (140-440); RED CELL DISTRIBUTION WIDTH 16.3 % (11.5-14.5); WHITE BLOOD COUNT 8.8 X10'3 (4.5-11.0)
[2019-08-04 16:58] LABS: ALANINE AMINOTRANSFERASE 23 U/L (12-78); ALBUMIN 3.7 G/DL (3.4-5.0); ALKALINE PHOSPHATASE 57 IU/L (46-116); ANION GAP 6 (8-16); ASPARTATE AMINO TRANSFERASE 21 U/L (10-37); BILIRUBIN,TOTAL 0.5 MG/DL (0.1-1.0); BLOOD UREA NITROGEN 26 MG/DL (7-18); BUN/CREATININE RATIO 17.6 (6.6-38.0); CALCIUM 10.3 MG/DL (8.5-10.1); CHLORIDE 102 MMOL/L (99-107); CREATININE 1.48 MG/DL (0.40-0.90); GLUCOSE 115 MG/DL (70-104); LIPASE 111 U/L (73-393); POTASSIUM 4.1 MMOL/L (3.5-5.1); SODIUM 138 MMOL/L (135-145); TOTAL CARBON DIOXIDE 29.9 MMOL/L (24-32); TOTAL PROTEIN 7.5 G/DL (6.4-8.2); eGFR 33 ML/MIN
--- NOTE | 2019-08-04 17:05 | NUR ---
SMITA ROMERO in room with patient. Patient was having stomach pain at home, was told to take anti-nausea medication. She began to take it, but it only made her feel worse. She tried to force herself to vomit, but couldn't. Her stomach is very painful upon palpitation of lower left quadrant.
[2019-08-04] MEDS ORDERED: normal saline 1000ml 1,000 ML IV ONE (17:20)
--- NOTE | 2019-08-04 18:06 | NUR ---
INITIATED IV STARTED IV FLUIDS, PT NOW AMBULATORY TO BATHROOM WITH STEADY GAIT TO PROVIDE URINE SAMPLE PER ORDERS.
[2019-08-04 18:34] LABS: CLARITY,URINE CLOUDY (Clear); COLOR,URINE YELLOW (Yellow); GLUCOSE, URINE NEGATIVE (Neg); KETONES,URINE 15 mg/dl (Neg); LEUKOCYTE ESTERASE ,URINE TRACE (Neg); NITRITES, URINE NEGATIVE (Neg); OCCULT BLOOD,URINE NEGATIVE (Neg); PROTEIN,URINE TRACE mg/dl (Neg); UROBILINOGEN,URINE 0.2 E.U/dL (0.2-1.0)
[2019-08-04] MEDS ORDERED: AMOX-580 PO (18:34)
[2019-08-04 18:47] LABS: UA COLLECTION TYPE CLN CATCH MIDSTREAM
[2019-08-04 18:48] VITALS: BP 157/101
[2019-08-04 18:50] LABS: HYALINE CASTS >30 /LPF (NEGATIVE); SQUAMOUS EPITHELIAL CELL,UR MODERATE /LPF (FEW)
[2019-08-04 18:51] LABS: MUCUS STRANDS MODERATE /LPF (Neg); RBC,URINE 0-2 /HPF (0-2); TRANSITIONAL EPI CELLS,URINE FEW /HPF
[2019-08-04 18:52] LABS: BACTERIA,URINE 1+ /HPF (Neg)
== END 2019-08-04 18:53 | disposition home or self-care (01) ==
LOC: ER 15:44
DX: K57.92 Diverticulitis of intestine, part unspecified, without perforation or abscess without bleeding (principal); J44.9 Chronic obstructive pulmonary disease, unspecified; I12.9 Hypertensive chronic kidney disease with stage 1 through stage 4 chronic kidney disease, or unspecified chronic kidney disease; E11.22 Type 2 diabetes mellitus with diabetic chronic kidney disease; N18.9 Chronic kidney disease, unspecified; Z90.710 Acquired absence of both cervix and uterus; Z98.890 Other specified postprocedural states; Z79.899 Other long term (current) drug therapy; Z60.2 Problems related to living alone
CPT/HCPCS: 36415; 74176; 80053; 81001; 83690; 85025; 87088; 99284; J7030

== ENCOUNTER 2020-08-29 12:13 | Emergency (ER) | payer OTHER ==
[~2020-08-29] VITALS: Ht 165.1 cm; Wt 63.6 kg
[2020-08-29 12:54] VITALS: BP 126/59
--- NOTE | 2020-08-29 13:04 | NUR ---
SON ALVAREZ WILL PICK PT UP. HIS NUMBER IS: [phone]
--- NOTE | 2020-08-29 14:01 | NUR ---
Doppler done at bedside with bilateral pedal pulses located.
--- NOTE | 2020-08-29 14:02 | NUR ---
called son to provide transport for patient. No answer, left message.
--- NOTE | 2020-08-29 14:04 | NUR ---
Call returned, 30min ETA for transport
== END 2020-08-29 14:21 | disposition home or self-care (01) ==
LOC: ER 12:13
DX: Z02.89 Encounter for other administrative examinations (principal); I12.9 Hypertensive chronic kidney disease with stage 1 through stage 4 chronic kidney disease, or unspecified chronic kidney disease; E11.22 Type 2 diabetes mellitus with diabetic chronic kidney disease; N18.9 Chronic kidney disease, unspecified; Z85.9 Personal history of malignant neoplasm, unspecified; Z90.710 Acquired absence of both cervix and uterus; Z79.899 Other long term (current) drug therapy
CPT/HCPCS: 99284